=== PATIENT | male | born 1990 | race Two or more races ===

== ENCOUNTER 2020-11-23 06:49 | Emergency (ER) | payer OTHER ==
[~2020-11-23] VITALS: Ht 170.2 cm; Wt 86.2 kg
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
[2020-11-23] MEDS ORDERED: ACETAMINOPHEN ES 500 MG TABLET ONE (07:28)
[2020-11-23] MEDS ORDERED: IBUPROFEN 600 MG TABLET ONE (07:28)
[2020-11-23] MEDS ORDERED: ACETAMINOPHEN ES 500 MG TABLET PO ONE (07:30)
[2020-11-23] MEDS ORDERED: IBUPROFEN 600 MG TABLET PO ONE (07:30)
--- NOTE | 2020-11-23 07:31 | NUR ---
PATIENT IS TAKEN FOR XRAY. OFFICERS WITH THE PATIENT.
[2020-11-23] MEDS ORDERED: IBUP-1957 PO (08:16)
--- NOTE | 2020-11-23 08:35 | NUR ---
The patient alert and oriented x4. Denies pain at this time. In room air and denies SOB. Respiration regular and unlabored. The patient and the officers are provided with discharge instructions and they verbalized understanding. The patient left ER in stable condition and accompanied by officers.
[2020-11-23 08:37] VITALS: BP 142/81
== END 2020-11-23 08:37 ==
LOC: ER 06:49
DX: S40.012A Contusion of left shoulder, initial encounter (principal); S30.0XXA Contusion of lower back and pelvis, initial encounter; W22.8XXA Striking against or struck by other objects, initial encounter; Y93.89 Activity, other specified; Y92.89 Other specified places as the place of occurrence of the external cause; Y99.8 Other external cause status
CPT/HCPCS: 72110-TC; 73030-TC

== ENCOUNTER 2021-02-25 11:31 | Emergency (ER) | payer OTHER ==
[~2021-02-25] VITALS: Ht 170.2 cm; Wt 77.1 kg
[~2021-02-25 11:31] MED LIST: IBUP-1957 PO
[2021-02-25 11:40] VITALS: BP 128/84
--- NOTE | 2021-02-25 11:54 | NUR ---
[employer] AT BEDSIDE FOR WOUND CLEANING AND DRESSING.
--- NOTE | 2021-02-25 12:06 | NUR ---
Patient discharged in custody in stable condition. Written and verbal after care instructions given. Patient verbalizes understanding of instruction.
== END 2021-02-25 12:07 ==
LOC: ER 11:35
DX: S60.511A Abrasion of right hand, initial encounter (principal); X58.XXXA Exposure to other specified factors, initial encounter; Y93.89 Activity, other specified; Y92.89 Other specified places as the place of occurrence of the external cause; Y99.8 Other external cause status